=== PATIENT | female | born 1970 | race African-American/Black ===

== ENCOUNTER 2023-03-02 14:25 | Emergency (ER) | payer MEDICAID, SELFPAY ==
[~2023-03-02] VITALS: Ht 149.9 cm; Wt 45.5 kg
[2023-03-02] MEDS ORDERED: CLAR10CA3 PO (14:40)
[2023-03-02] MEDS ORDERED: ASPI-655 PO (14:40)
[2023-03-02] MEDS ORDERED: CETI10CH PO (16:15)
[2023-03-02] MEDS ORDERED: HYDR25OIN TOP (16:15)
[2023-03-02 16:26] VITALS: BP 178/74; TEMP 98.2; O2SAT 100
== END 2023-03-02 16:28 | disposition home or self-care (01) ==
LOC: M ED 14:25
DX: L29.9 Pruritus, unspecified (principal); R21 Rash and other nonspecific skin eruption; E11.9 Type 2 diabetes mellitus without complications; Z88.0 Allergy status to penicillin